=== PATIENT | male | born 1980 | race Caucasian/White ===

== ENCOUNTER 2021-02-15 13:29 | Inpatient (IN) ==
[2021-02-15] MEDS ORDERED: Acetaminophen 325 MG TABLET PO PRN (16:32)
[2021-02-15] MEDS ORDERED: Benzonatate 100 MG CAPSULE PO PRN (16:32)
[2021-02-15] MEDS ORDERED: Ondansetron 4 MG/2 ML VIAL IVP PRN (16:41)
[2021-02-15] MEDS ORDERED: Naloxone 0.4 MG/ML INJ IVP PRN (16:41)
[2021-02-15] MEDS: Ipratropium 1 PUFF INHALER IH SCH ×2 (20:29→23:54)
[2021-02-15] MEDS: *HR* Enoxaparin 40 MG/0.4 ML SYRINGE SQ SCH (22:04)
[2021-02-16] MEDS: Ipratropium 1 PUFF INHALER IH SCH ×5 (04:21→20:42)
[2021-02-16 05:20] LABS: Basophils % 0.2 %; Hematocrit 42.2 % (37.5-50.1); Immature Granulocytes % 0.8 % (0-4); Lymphocytes # 0.7 K/mcL (0.6-4.6); Lymphocytes % 11.2 %; Mean Corpuscular HGB Conc 33.2 g/dL (31.6-35.5); Mean Corpuscular Hemoglobin 28.7 pg (28.0-33.3); Mean Corpuscular Volume 86.7 fL (83.0-100.0); Mean Platelet Volume 10.2 fL (9.4-12.4); Monocytes # 0.3 K/mcL (0.0-1.3); Monocytes % 5.2 %; Neutrophils # 5.4 K/mcL (1.6-8.9); Platelet Count 242 K/mcL (140-400); Red Blood Count 4.87 M/mcL (4.19-5.50); Red Cell Distribution Width 13.7 % (11.5-14.5); Segmented Neutrophils % 82.6 %; White Blood Count 6.5 K/mcL (4.3-11.1)
[2021-02-16] MEDS: *HR* LORazepam 0.5 MG TABLET PO SCH ×2 (10:33→20:45)
[2021-02-16] MEDS: *HR* Enoxaparin 40 MG/0.4 ML SYRINGE SQ SCH ×2 (10:34→20:45)
[2021-02-17] MEDS: Ipratropium 1 PUFF INHALER IH SCH ×7 (00:11→23:53)
[2021-02-17 03:05] LABS: Basophils % 0.1 %; Hematocrit 40.2 % (37.5-50.1); Hemoglobin 13.4 g/dL (12.9-16.9); Immature Granulocytes % 0.6 % (0-4); Lymphocytes # 0.6 K/mcL (0.6-4.6); Lymphocytes % 4.6 %; Mean Corpuscular HGB Conc 33.3 g/dL (31.6-35.5); Mean Corpuscular Hemoglobin 28.7 pg (28.0-33.3); Mean Corpuscular Volume 86.1 fL (83.0-100.0); Mean Platelet Volume 10.2 fL (9.4-12.4); Monocytes # 0.6 K/mcL (0.0-1.3); Monocytes % 4.3 %; Platelet Count 299 K/mcL (140-400); Red Blood Count 4.67 M/mcL (4.19-5.50); Red Cell Distribution Width 13.8 % (11.5-14.5); Segmented Neutrophils % 90.4 %
[2021-02-17 03:06] LABS: Neutrophils # 11.8 K/mcL (1.6-8.9); White Blood Count 13.1 K/mcL (4.3-11.1)
[2021-02-17 03:44] LABS: BUN/Creatinine Ratio 36 (6-26); Blood Urea Nitrogen 26 mg/dL (6-20); C-Reactive Protein 64 mg/L (Less than 10); Calcium 8.9 mg/dL (8.6-10.3); Carbon Dioxide 22 mEq/L (23-29); Chloride 102 mEq/L (98-107); Glucose 153 mg/dL (70-105); Lactate Dehydrogenase 618 Units/L (140-271); Osmolality,Calculated 290 (280-300); Potassium 3.6 mEq/L (3.5-5.1); Sodium 136 mEq/L (136-145); eGFR For African Americans > 60 (> 60); eGFR For Non-African Americans > 60 (> 60)
[2021-02-17] MEDS: *HR* Enoxaparin 40 MG/0.4 ML SYRINGE SQ SCH ×2 (09:27→19:48)
[2021-02-17] MEDS: Cholecalciferol (D-3) 1,000 UNIT (25MCG) TABLET PO SCH (09:28)
[2021-02-17] MEDS: *HR* LORazepam 0.5 MG TABLET PO SCH ×2 (09:28→19:48)
[2021-02-18] MEDS: Ipratropium 1 PUFF INHALER IH SCH ×6 (03:44→23:16)
[2021-02-18 08:47] LABS: Basophils % 0.2 %; Hematocrit 41.2 % (37.5-50.1); Hemoglobin 13.8 g/dL (12.9-16.9); Lymphocytes # 0.8 K/mcL (0.6-4.6); Lymphocytes % 7.2 %; Mean Corpuscular HGB Conc 33.5 g/dL (31.6-35.5); Mean Corpuscular Hemoglobin 29.1 pg (28.0-33.3); Mean Corpuscular Volume 86.9 fL (83.0-100.0); Mean Platelet Volume 10.1 fL (9.4-12.4); Monocytes # 0.4 K/mcL (0.0-1.3); Monocytes % 3.8 %; Neutrophils # 10.3 K/mcL (1.6-8.9); Platelet Count 335 K/mcL (140-400); Red Blood Count 4.74 M/mcL (4.19-5.50); Red Cell Distribution Width 13.5 % (11.5-14.5); Segmented Neutrophils % 87.8 %; White Blood Count 11.7 K/mcL (4.3-11.1)
[2021-02-18 09:10] LABS: BUN/Creatinine Ratio 36 (6-26); Blood Urea Nitrogen 28 mg/dL (6-20); Carbon Dioxide 25 mEq/L (23-29); Chloride 102 mEq/L (98-107); Glucose 115 mg/dL (70-105); Osmolality,Calculated 292 (280-300); Potassium 3.8 mEq/L (3.5-5.1); Sodium 138 mEq/L (136-145); eGFR For African Americans > 60 (> 60); eGFR For Non-African Americans > 60 (> 60)
[2021-02-18 09:18] LABS: C-Reactive Protein 27 mg/L (Less than 10); Lactate Dehydrogenase 582 Units/L (140-271)
[2021-02-18 09:24] LABS: Ferritin 859 ng/mL (20-250)
[2021-02-18] MEDS: Cholecalciferol (D-3) 1,000 UNIT (25MCG) TABLET PO SCH (09:37)
[2021-02-18] MEDS: *HR* LORazepam 0.5 MG TABLET PO SCH ×2 (09:38→20:07)
[2021-02-18] MEDS: *HR* Enoxaparin 40 MG/0.4 ML SYRINGE SQ SCH ×2 (09:38→20:07)
[2021-02-19 01:44] LABS: Basophils % 0.1 %; Hematocrit 40.9 % (37.5-50.1); Hemoglobin 13.8 g/dL (12.9-16.9); Immature Granulocytes % 1.1 % (0-4); Lymphocytes # 0.6 K/mcL (0.6-4.6); Lymphocytes % 4.9 %; Mean Corpuscular HGB Conc 33.7 g/dL (31.6-35.5); Mean Corpuscular Hemoglobin 29.1 pg (28.0-33.3); Mean Corpuscular Volume 86.3 fL (83.0-100.0); Mean Platelet Volume 10.1 fL (9.4-12.4); Monocytes # 0.5 K/mcL (0.0-1.3); Monocytes % 4.3 %; Neutrophils # 10.5 K/mcL (1.6-8.9); Platelet Count 325 K/mcL (140-400); Red Blood Count 4.74 M/mcL (4.19-5.50); Red Cell Distribution Width 13.4 % (11.5-14.5); Segmented Neutrophils % 89.6 %; White Blood Count 11.7 K/mcL (4.3-11.1)
[2021-02-19 02:01] LABS: BUN/Creatinine Ratio 34 (6-26); Blood Urea Nitrogen 24 mg/dL (6-20); Carbon Dioxide 24 mEq/L (23-29); Chloride 103 mEq/L (98-107); Glucose 117 mg/dL (70-105); Osmolality,Calculated 289 (280-300); Potassium 4.1 mEq/L (3.5-5.1); Sodium 137 mEq/L (136-145); eGFR For African Americans > 60 (> 60); eGFR For Non-African Americans > 60 (> 60)
[2021-02-19 02:02] LABS: C-Reactive Protein 16 mg/L (Less than 10); Lactate Dehydrogenase 556 Units/L (140-271)
[2021-02-19 02:19] LABS: Ferritin 843 ng/mL (20-250)
[2021-02-19] MEDS: Ipratropium 1 PUFF INHALER IH SCH ×5 (03:40→20:41)
[2021-02-19] MEDS: Cholecalciferol (D-3) 1,000 UNIT (25MCG) TABLET PO SCH (07:56)
[2021-02-19] MEDS: *HR* Enoxaparin 40 MG/0.4 ML SYRINGE SQ SCH ×2 (07:57→19:51)
[2021-02-19] MEDS: *HR* LORazepam 0.5 MG TABLET PO SCH ×2 (07:57→19:51)
[2021-02-20] MEDS: Ipratropium 1 PUFF INHALER IH SCH ×7 (00:15→23:51)
[2021-02-20 05:09] LABS: White Blood Count 10.4 K/mcL (4.3-11.1)
[2021-02-20 05:10] LABS: Basophils % 0.1 %; Eosinophils # 0.1 K/mcL (0.0-0.6); Eosinophils % 0.9 %; Hemoglobin 13.3 g/dL (12.9-16.9); Immature Granulocytes % 1.3 % (0-4); Lymphocytes # 0.7 K/mcL (0.6-4.6); Lymphocytes % 6.4 %; Mean Corpuscular HGB Conc 33.3 g/dL (31.6-35.5); Mean Corpuscular Volume 87.1 fL (83.0-100.0); Mean Platelet Volume 9.9 fL (9.4-12.4); Monocytes # 0.4 K/mcL (0.0-1.3); Monocytes % 3.7 %; Neutrophils # 9.1 K/mcL (1.6-8.9); Platelet Count 303 K/mcL (140-400); Red Blood Count 4.59 M/mcL (4.19-5.50); Red Cell Distribution Width 13.3 % (11.5-14.5); Segmented Neutrophils % 87.6 %
[2021-02-20 05:24] LABS: BUN/Creatinine Ratio 29 (6-26); Blood Urea Nitrogen 22 mg/dL (6-20); Calcium 8.8 mg/dL (8.6-10.3); Carbon Dioxide 26 mEq/L (23-29); Chloride 101 mEq/L (98-107); Glucose 105 mg/dL (70-105); Osmolality,Calculated 284 (280-300); Potassium 4.3 mEq/L (3.5-5.1); Sodium 135 mEq/L (136-145); eGFR For African Americans > 60 (> 60); eGFR For Non-African Americans > 60 (> 60)
[2021-02-20 05:26] LABS: C-Reactive Protein 7 mg/L (Less than 10); Lactate Dehydrogenase 475 Units/L (140-271)
[2021-02-20 05:44] LABS: Ferritin 786 ng/mL (20-250)
[2021-02-20] MEDS ORDERED: Dexamethasone Sodium Phos/PF 10 MG/ML VIAL IVP SCH (09:00)
[2021-02-20] MEDS: Cholecalciferol (D-3) 1,000 UNIT (25MCG) TABLET PO SCH (09:49)
[2021-02-20] MEDS: *HR* LORazepam 0.5 MG TABLET PO SCH ×2 (09:50→22:05)
[2021-02-20] MEDS: *HR* Enoxaparin 40 MG/0.4 ML SYRINGE SQ SCH ×2 (09:53→22:05)
[2021-02-21] MEDS: Ipratropium 1 PUFF INHALER IH SCH ×6 (03:20→23:28)
[2021-02-21 04:06] LABS: Basophils % 0.2 %; Eosinophils # 0.1 K/mcL (0.0-0.6); Eosinophils % 1.1 %; Hematocrit 39.3 % (37.5-50.1); Immature Granulocytes % 1.8 % (0-4); Lymphocytes # 0.6 K/mcL (0.6-4.6); Lymphocytes % 4.8 %; Mean Corpuscular HGB Conc 33.1 g/dL (31.6-35.5); Mean Corpuscular Hemoglobin 28.3 pg (28.0-33.3); Mean Corpuscular Volume 85.4 fL (83.0-100.0); Mean Platelet Volume 10.3 fL (9.4-12.4); Monocytes # 0.5 K/mcL (0.0-1.3); Monocytes % 4.6 %; Platelet Count 311 K/mcL (140-400); Red Cell Distribution Width 13.2 % (11.5-14.5); Segmented Neutrophils % 87.5 %; White Blood Count 11.4 K/mcL (4.3-11.1)
[2021-02-21 04:26] LABS: C-Reactive Protein < 5 mg/L (Less than 10); Lactate Dehydrogenase 463 Units/L (140-271)
[2021-02-21 04:28] LABS: BUN/Creatinine Ratio 34 (6-26); Blood Urea Nitrogen 20 mg/dL (6-20); Calcium 8.5 mg/dL (8.6-10.3); Carbon Dioxide 24 mEq/L (23-29); Chloride 101 mEq/L (98-107); Glucose 98 mg/dL (70-105); Osmolality,Calculated 279 (280-300); Potassium 4.8 mEq/L (3.5-5.1); Sodium 133 mEq/L (136-145); eGFR For African Americans > 60 (> 60); eGFR For Non-African Americans > 60 (> 60)
[2021-02-21 04:40] LABS: Ferritin 754 ng/mL (20-250)
[2021-02-21] MEDS: *HR* Enoxaparin 40 MG/0.4 ML SYRINGE SQ SCH ×2 (07:41→20:13)
[2021-02-21] MEDS: Dexamethasone Sodium Phos/PF 10 MG/ML VIAL IVP SCH (07:42)
[2021-02-21] MEDS: Cholecalciferol (D-3) 1,000 UNIT (25MCG) TABLET PO SCH (07:43)
[2021-02-21] MEDS: *HR* LORazepam 0.5 MG TABLET PO SCH ×2 (07:43→20:13)
[2021-02-22] MEDS ORDERED: Famotidine 20 MG TABLET PO ONE (00:46)
[2021-02-22] MEDS: Ipratropium 1 PUFF INHALER IH SCH ×6 (03:36→23:36)
[2021-02-22] MEDS: Cholecalciferol (D-3) 1,000 UNIT (25MCG) TABLET PO SCH (10:54)
[2021-02-22] MEDS: *HR* Enoxaparin 40 MG/0.4 ML SYRINGE SQ SCH ×2 (10:55→20:48)
[2021-02-22] MEDS: *HR* LORazepam 0.5 MG TABLET PO SCH ×2 (10:55→20:48)
[2021-02-22] MEDS: Dexamethasone Sodium Phos/PF 10 MG/ML VIAL IVP SCH (10:55)
[2021-02-22] MEDS ORDERED: Pantoprazole 40 MG VIAL IVP ONE (21:30)
[2021-02-23] MEDS: Ipratropium 1 PUFF INHALER IH SCH ×6 (04:58→22:53)
[2021-02-23 07:41] LABS: Hematocrit 39.8 % (37.5-50.1); Hemoglobin 13.6 g/dL (12.9-16.9); Mean Corpuscular HGB Conc 34.2 g/dL (31.6-35.5); Mean Corpuscular Hemoglobin 29.7 pg (28.0-33.3); Mean Corpuscular Volume 86.9 fL (83.0-100.0); Mean Platelet Volume 10.3 fL (9.4-12.4); Platelet Count 291 K/mcL (140-400); Red Blood Count 4.58 M/mcL (4.19-5.50); Red Cell Distribution Width 13.7 % (11.5-14.5)
[2021-02-23 08:02] LABS: BUN/Creatinine Ratio 27 (6-26); Blood Urea Nitrogen 20 mg/dL (6-20); Calcium 8.9 mg/dL (8.6-10.3); Carbon Dioxide 25 mEq/L (23-29); Chloride 101 mEq/L (98-107); Glucose 98 mg/dL (70-105); Magnesium 1.8 mg/dL (1.6-2.6); Osmolality,Calculated 283 (280-300); Phosphorous 3.9 mg/dL (2.7-4.5); Potassium 4.3 mEq/L (3.5-5.1); Sodium 135 mEq/L (136-145); eGFR For African Americans > 60 (> 60); eGFR For Non-African Americans > 60 (> 60)
[2021-02-23] MEDS: *HR* LORazepam 0.5 MG TABLET PO SCH ×2 (10:50→21:23)
[2021-02-23] MEDS: Cholecalciferol (D-3) 1,000 UNIT (25MCG) TABLET PO SCH (10:51)
[2021-02-23] MEDS: Dexamethasone Sodium Phos/PF 10 MG/ML VIAL IVP SCH (10:51)
[2021-02-23] MEDS: *HR* Enoxaparin 40 MG/0.4 ML SYRINGE SQ SCH ×2 (10:54→21:23)
[2021-02-24] MEDS: Ipratropium 1 PUFF INHALER IH SCH ×3 (03:42→11:40)
[2021-02-24 04:48] VITALS: TEMP 97.7
[2021-02-24 06:58] VITALS: BP 113/59; PULSE 76
[2021-02-24] MEDS: Cholecalciferol (D-3) 1,000 UNIT (25MCG) TABLET PO SCH (09:12)
[2021-02-24] MEDS: *HR* LORazepam 0.5 MG TABLET PO SCH (09:13)
[2021-02-24] MEDS: *HR* Enoxaparin 40 MG/0.4 ML SYRINGE SQ SCH (09:15)
[2021-02-24] MEDS: Dexamethasone Sodium Phos/PF 10 MG/ML VIAL IVP SCH (09:15)
[2021-02-24 16:55] VITALS: O2SAT 90
== END 2021-02-24 16:03 | disposition home or self-care (01) | DRG 137 ==
LOC: 2NENU → SUATTDRO 15:59
PROVIDERS: ADMIT Internal Medicine; ATTEND Internal Medicine